=== PATIENT | female | born 1985 | race Caucasian/White ===

== ENCOUNTER 2018-03-04 19:05 | Emergency (ER) | payer OTHER ==
--- NOTE | 2018-03-04 19:31 | ED CARDIAC/CP/PALPITATIONS ---
See Addendum History of Present Illness General Chief Complaint: Chest Pain Stated Complaint: CP Source: patient Exam Limitations: no limitations Vital Signs & Intake/Output Vital Signs & Intake/Output Vital Signs Date Time Temp Pulse Resp B/P B/P Pulse O2 O2 Flow FiO2 Mean Ox Delivery Rate 03/04 2301 163/98 03/046 99.5 130 22 142/100 100 Room Air 03/04 1918 97.9 116 18 117/63 97 Room Air Allergies Coded Allergies: No Known Allergies (03/04/18) Triage Note: PT TO TRIAGE C/O INTERMITTENT NONRADIATING CP X 2 DAYS. PER PT "STRESS MAKES THE PAIN WORSE." DENIES ANY SOB/N/V. PT DENIES ANY CARDIAC HX. EVAL'D BY MD MAST. Triage Nurses Notes Reviewed? yes Onset: Gradual Duration: day(s): Timing: recent history Quality/Severity: moderate Location: central Radiation: no radiation Activities at Onset: none Prior Chest Pain/Card Workup: no prior chest pain Associated Symptoms: chestwall and back pain : No Patient currently breastfeeds: No HPI: 32YO woman in prior good health presents with chest pain for the past 2 days. She notes that for the past 5-6 days, she has had intermittent back pain, was evaluated at urgent care center, has been taking nsaids intermittently. She notes no radiation, fever, chills, dyspnea, abdominal pain. She is otherwise well. Past History Travel History Traveled to [place] past 21 day No Medical History Any Pertinent Medical History? see below for history Neurological: NONE EENT: NONE Cardiovascular: NONE Respiratory: NONE Gastrointestinal: NONE Hepatic: NONE Renal: NONE Musculoskeletal: NONE Psychiatric: NONE Endocrine: NONE Blood Disorders: NONE Cancer(s): NONE FUR JOINER/Reproductive: NONE Surgical History Surgical History: none Psychosocial History What is your primary language Albanian Tobacco Use: Never used Family History Hx Contributory? No Review of Systems Review of Systems Constitutional: Reports: no symptoms. EENTM: Reports: no symptoms. Respiratory: Reports: no symptoms. Cardiovascular: Reports: no symptoms. GI: Reports: no symptoms. Genitourinary: Reports: no symptoms. Musculoskeletal: Reports: no symptoms. Skin: Reports: no symptoms. Neurological/Psychological: Reports: no symptoms. Hematologic/Endocrine: Reports: no symptoms. Immunologic/Allergic: Reports: no symptoms. All Other Systems: Reviewed and Negative Physical Exam Physical Exam General Appearance: well developed/nourished, no apparent distress Head: atraumatic, normal appearance Eyes: Bilateral: normal appearance. Ears, Nose, Throat: normal pharynx, normal ENT inspection Neck: normal inspection, supple, full range of motion Respiratory: normal breath sounds, no respiratory distress, right sided parasternal chest wall tenderness to palpation. Cardiovascular: regular rate/rhythm Gastrointestinal: normal bowel sounds, soft, non-tender, no organomegaly Back: normal inspection Extremities: normal inspection, normal capillary refill, normal range of motion, no edema Neurologic/Psych: no motor/sensory deficits, awake, alert, oriented x 3 Skin: intact, normal color, warm/dry Core Measures ACS in differential dx? No CVA/TIA Diagnosis No Sepsis Present: No Sepsis Focused Exam Completed? No Progress Differential Diagnosis: costochondritis vs pe vs pneumonia vs other. Plan of Care: Orders Procedure Date/time Status TROPONIN LEVEL 03/04 1908 Complete HUMAN BETA HCG SCREEN 03/04 1908 Complete D-DIMER 03/04 1908 Complete COMPREHENSIVE METABOLIC PANEL 03/04 1908 Complete CBC WITHOUT DIFFERENTIAL 03/04 1908 Complete EKG 03/04 1907 Active Laboratory Tests 03/04/181927: Anion Gap 15, Estimated GFR > 60, BUN/Creatinine Ratio 18.3, Glucose 96, Calcium 9.9, Total Bilirubin 0.6, AST 33, ALT 61 H, Alkaline Phosphatase 52, Troponin I < 0.01, Total Protein 8.1, Albumin 4.8, Globulin 3.3, Albumin/Globulin Ratio 1.5 , Total Beta HCG NEGATIVE, D-Dimer High Sensitivty 213, CBC w Diff NO MAN DIFF REQ, RBC 4.72, MCV 91.3, MCH 30.8, MCHC 33.7, RDW 12.4, MPV 8.7, Gran % 56.7, Lymphocytes % 35.9, Monocytes % 6.3, Eosinophils % 0.8, Basophils % 0.3, Absolute Granulocytes 4.4, Absolute Lymphocytes 2.8, Absolute Monocytes 0.5, Absolute Eosinophils 0.1, Absolute Basophils 0 Diagnostic Imaging: Viewed by Me: Radiology Read. Discussed w/RAD: Radiology Read. CXR Impression: PATIENT: MORE RUEDA PRESENT AGE: 32 PATIENT ACCOUNT NO: [id number] : 86 LOCATION: [facility] ORDERING PHYSICIAN: Gilbert Mast MD SERVICE DATE: 03/04/18 EXAM TYPE: RAD - XRY- PORTABLE CHEST XRAY EXAMINATION: XR PORTABLE CHEST CLINICAL INFORMATION: Chest pain COMPARISON: None TECHNIQUE: Portable frontal view of the chest was obtained. FINDINGS: No focal consolidation, pulmonary edema, or pleural effusion. Normal cardiomediastinal silhouette. IMPRESSION: Normal chest. DICTATED BY: All Ramirez MD DATE/TIME DICTATED:03/04/182231 PLANNING SPECIALIST:AJIT DATE/TIME TRANSCRIBED:03/04/182231 CONFIDENTIAL, DO NOT COPY WITHOUT APPROPRIATE AUTHORIZATION. <Electronically signed in Other Vendor System> SIGNED BY: All Ramirez MD 03/04/182236 Initial ED EKG: nsr, no acute changes Departure Departure Disposition: HOME OR SELF CARE Condition: Stable Clinical Impression Primary Impression: Chest wall pain Departure Forms: Customer Survey General Discharge Information Critical Care Note Critical Care Note Critical Care Time: 30-74 min
[2018-03-04 19:35] LABS: ABSOLUTE BASOPHIL COUNT 0 /CUMM (0.0-0.2); ABSOLUTE EOSINOPHIL COUNT 0.1 /CUMM (0.0-0.7); ABSOLUTE GRANULOCYTE CT 4.4 /CUMM (1.4-6.5); ABSOLUTE LYMPH COUNT 2.8 /CUMM (1.2-3.4); ABSOLUTE MONOCYTE COUNT 0.5 /CUMM (0.10-0.60); BASOPHIL % 0.3 % (0.0-2.0); EOSINOPHIL % 0.8 % (0-5); GRANULOCYTE % 56.7 % (42.2-75.2); HEMATOCRIT 43.1 % (37-47); MEAN CORPUSCULAR HGB 30.8 PG (27.0-31.0); MEAN CORPUSCULAR HGB CONC 33.7 G/DL (33.0-37.0); MEAN CORPUSCULAR VOLUME 91.3 FL (81.0-99.0); MEAN PLATELET VOLUME 8.7 FL (7.4-10.4); PLATELET COUNT 306 /CUMM (130-400); RBC DISTRIBUTION WIDTH 12.4 % (11.5-14.5); RED BLOOD CELL CT 4.72 /CUMM (4.20-5.40); WHITE BLOOD CELL COUNT 7.8 /CUMM (4.8-10.8)
--- NOTE | 2018-03-04 22:37 | RADIOLOGY REPORT ---
EXAMINATION: XR PORTABLE CHEST CLINICAL INFORMATION: Chest pain COMPARISON: None TECHNIQUE: Portable frontal view of the chest was obtained. FINDINGS: No focal consolidation, pulmonary edema, or pleural effusion. Normal cardiomediastinal silhouette. IMPRESSION: Normal chest.
[2018-03-04 23:01] VITALS: BP 163/98
--- NOTE | 2018-03-10 00:37 | ED CARDIAC/CP/PALPITATIONS ---
History of Present Illness General Chief Complaint: Chest Pain Stated Complaint: CP Source: patient Exam Limitations: no limitations Vital Signs & Intake/Output Vital Signs & Intake/Output . Allergies Coded Allergies: No Known Allergies (03/04/18) Triage Note: PT TO TRIAGE C/O INTERMITTENT NONRADIATING CP X 2 DAYS. PER PT "STRESS MAKES THE PAIN WORSE." DENIES ANY SOB/N/V. PT DENIES ANY CARDIAC HX. EVAL'D BY MD MAST. Triage Nurses Notes Reviewed? yes : No Patient currently breastfeeds: No H[place]: [place] [address] [facility] RECORDS DEPARTMENT ED Cardiac/CP/Palpitations Complaint PATIENT: MORE RUEDA PRESENT AGE: 32 PATIENT ACCOUNT NO: [id number] DATE OF : 87 ADMIT/SERVICE DATE: 03/04/18 ATTENDING PHYSICIAN: PATIENT CARE UNIT CONFIDENTIAL COPY See Addendum History of Present Illness General Chief Complaint: Chest Pain Stated Complaint: CP Source: patient Exam Limitations: no limitations Vital Signs & Intake/Output Vital Signs & Intake/Output Vital Signs Date Time Temp Pulse Resp B/P B/P Pulse O2 O2 Flow FiO2 Mean Ox Delivery Rate 03/04 2301 163/98 03/04 2206 99.5 130 22 142/100 100 Room Air 03/04 1918 97.9 116 18 117/63 97 Room Air Allergies Coded Allergies: No Known Allergies (03/04/18) Triage Note: PT TO TRIAGE C/O INTERMITTENT NONRADIATING CP X 2 DAYS. PER PT "STRESS MAKES THE PAIN WORSE." DENIES ANY SOB/N/V. PT DENIES ANY CARDIAC HX. EVAL'D BY MD MAST. Triage Nurses Notes Reviewed? yes Onset: Gradual Duration: day(s): Timing: recent history Quality/Severity: moderate Location: central Radiation: no radiation Activities at Onset: none Prior Chest Pain/Card Workup: no prior chest pain Associated Symptoms: chestwall and back pain : No Patient currently breastfeeds: No HPI: 32YO woman in prior good health presents with chest pain for the past 2 days. She notes that for the past 5-6 days, she has had intermittent back pain, was evaluated at urgent care center, has been taking nsaids intermittently. She notes no radiation, fever, chills, dyspnea, abdominal pain. She is otherwise well. Past History Travel History Traveled to [place] past 21 day No Medical History Any Pertinent Medical History? see below for history Neurological: NONE EENT: NONE Cardiovascular: NONE Respiratory: NONE Gastrointestinal: NONE Hepatic: NONE Renal: NONE Musculoskeletal: NONE Psychiatric: NONE Endocrine: NONE Blood Disorders: NONE Cancer(s): NONE LOG BRANDER/Reproductive: NONE Surgical History Surgical History: none Psychosocial History What is your primary language Turkmen Tobacco Use: Never used Family History Hx Contributory? No Review of Systems Review of Systems Constitutional: Reports: no symptoms. EENTM: Reports: no symptoms. Respiratory: Reports: no symptoms. Cardiovascular: Reports: no symptoms. GI: Reports: no symptoms. Genitourinary: Reports: no symptoms. Musculoskeletal: Reports: no symptoms. Skin: Reports: no symptoms. Neurological/Psychological: Reports: no symptoms. Hematologic/Endocrine: Reports: no symptoms. Immunologic/Allergic: Reports: no symptoms. All Other Systems: Reviewed and Negative Physical Exam Physical Exam General Appearance: well developed/nourished, no apparent distress Head: atraumatic, normal appearance Eyes: Bilateral: normal appearance. Ears, Nose, Throat: normal pharynx, normal ENT inspection Neck: normal inspection, supple, full range of motion Respiratory: normal breath sounds, no respiratory distress, right sided parasternal chest wall tenderness to palpation. Cardiovascular: regular rate/rhythm Gastrointestinal: normal bowel sounds, soft, non-tender, no organomegaly Back: normal inspection Extremities: normal inspection, normal capillary refill, normal range of motion, no edema Neurologic/Psych: no motor/sensory deficits, awake, alert, oriented x 3 Skin: intact, normal color, warm/dry Core Measures ACS in differential dx? No CVA/TIA Diagnosis No Sepsis Present: No Sepsis Focused Exam Completed? No Progress Differential Diagnosis: costochondritis vs pe vs pneumonia vs other. Plan of Care: Orders Procedure Date/time Status TROPONIN LEVEL 03/04 1908 Complete HUMAN BETA HCG SCREEN 03/04 1908 Complete D-DIMER 03/04 1908 Complete COMPREHENSIVE METABOLIC PANEL 03/04 1908 Complete CBC WITHOUT DIFFERENTIAL 03/04 1908 Complete EKG 03/04 1907 Active Laboratory Tests 03/04/181927: Anion Gap 15, Estimated GFR > 60, BUN/Creatinine Ratio 18.3, Glucose 96, Calcium 9.9, Total Bilirubin 0.6, AST 33, ALT 61 H, Alkaline Phosphatase 52, Troponin I < 0.01, Total Protein 8.1, Albumin 4.8, Globulin 3.3, Albumin/Globulin Ratio 1.5 , Total Beta HCG NEGATIVE, D-Dimer High Sensitivty 213, CBC w Diff NO MAN DIFF REQ, RBC 4.72, MCV 91.3, MCH 30.8, MCHC 33.7, RDW 12.4, MPV 8.7, Gran % 56.7, Lymphocytes % 35.9, Monocytes % 6.3, Eosinophils % 0.8, Basophils % 0.3, Absolute Granulocytes 4.4, Absolute Lymphocytes 2.8, Absolute Monocytes 0.5, Absolute Eosinophils 0.1, Absolute Basophils 0 Diagnostic Imaging: Viewed by Me: Radiology Read. Discussed w/RAD: Radiology Read. CXR Impression: PATIENT: MORE RUEDA PRESENT AGE: 32 PATIENT ACCOUNT NO: [id number] : 86 LOCATION: [facility] ORDERING PHYSICIAN: Gilbert Mast MD SERVICE DATE: 03/04/18 EXAM TYPE: RAD - XRY- PORTABLE CHEST XRAY EXAMINATION: XR PORTABLE CHEST CLINICAL INFORMATION: Chest pain COMPARISON: None TECHNIQUE: Portable frontal view of the chest was obtained. FINDINGS: No focal consolidation, pulmonary edema, or pleural effusion. Normal cardiomediastinal silhouette. IMPRESSION: Normal chest. DICTATED BY: All Ramirez MD DATE/TIME DICTATED:03/04/182231 HEARING HEALTHCARE PRACTITIONER:AJIT DATE/TIME TRANSCRIBED:03/04/182231 CONFIDENTIAL, DO NOT COPY WITHOUT APPROPRIATE AUTHORIZATION. <Electronically signed in Other Vendor System> SIGNED BY: All Ramirez MD 03/04/182236 Initial ED EKG: nsr, no acute changes Departure Departure Disposition: HOME OR SELF CARE Condition: Stable Clinical Impression Primary Impression: Chest wall pain Departure Forms: Customer Survey General Discharge Information Critical Care Note Critical Care Note Critical Care Time: 30-74 min INITIATED BY: Gilbert Mast MD DATE/TIME INITIATED:03/04/181930 REPORT NUMBER:[id number] CONFIDENTIAL, DO NOT COPY WITHOUT APPROPRIATE AUTHORIZATION. CC: Report Status: Cancelled Report #: [id number] Page [p pg Past History Travel History Traveled to [place] past 21 day No Medical History Any Pertinent Medical History? see below for history Neurological: NONE EENT: NONE Cardiovascular: NONE Respiratory: NONE Gastrointestinal: NONE Hepatic: NONE Renal: NONE Musculoskeletal: NONE Psychiatric: NONE Endocrine: NONE Blood Disorders: NONE Cancer(s): NONE LOG BRANDER/Reproductive: NONE Surgical History Surgical History: none Psychosocial History What is your primary language Turkmen Tobacco Use: Never used Family History Hx Contributory? No Review of Systems Review of Systems Constitutional: Reports: no symptoms. EENTM: Reports: no symptoms. Respiratory: Reports: no symptoms. Cardiovascular: Reports: no symptoms. GI: Reports: no symptoms. Genitourinary: Reports: no symptoms. Musculoskeletal: Reports: no symptoms. Skin: Reports: no symptoms. Neurological/Psychological: Reports: no symptoms. Hematologic/Endocrine: Reports: no symptoms. Immunologic/Allergic: Reports: no symptoms. All Other Systems: Reviewed and Negative Physical Exam Physical Exam General Appearance: SEE BELOW OR EXAM Cardiovascular: regular rate/rhythm Core Measures ACS in differential dx? No CVA/TIA Diagnosis No Sepsis Present: No Sepsis Focused Exam Completed? No Progress Differential Diagnosis: AMI VS OTHER Plan of Care: SEE BELOW Initial ED EKG: none Departure Departure Disposition: HOME OR SELF CARE Condition: Stable Clinical Impression Primary Impression: Chest wall pain Secondary Impressions: Chest pain Referrals: Joanna Pollard MD (PCP/Family) Additional Instructions: FOLLOW UP WITH YOUR DOCTOR TOMORROW. Departure Forms: Customer Survey General Discharge Information Release- Work Critical Care Note Critical Care Note Critical Care Time: non-applicable
== END 2018-03-04 23:02 ==
LOC: ERH 19:05
PROVIDERS: Pediatrics
DX: R07.89 Other chest pain (principal)
CPT/HCPCS: 71045; 93005; 93010